=== PATIENT | female | born 1990 | race Caucasian/White ===

== ENCOUNTER 2018-02-06 20:07 | Inpatient (IN) | payer OTHER ==
[~2018-02-06] VITALS: Ht 165.1 cm; Wt 95.5 kg
[2018-02-06] MEDS ORDERED: MAGNESIUM SULF. PMX 20GM/500ML 500 ML IV SCH (21:29)
[2018-02-06] MEDS ORDERED: MAGNESIUM SULFATE PMX 2GM/50ML 50 ML IVPB ONE ×2 (21:30→23:30)
[2018-02-06] MEDS ORDERED: MAGNESIUM SULFATE PMX 4GM/100M 100 ML IVPB ONE ×2 (21:30)
[2018-02-06] MEDS ORDERED: D5%-LACTATED RINGERS 1,000 ML IV SCH (21:37)
[2018-02-06 21:50] LABS: BASOPHILS # (AUTO) 0.03 x10^3/uL (0-0.1); BASOPHILS % (AUTO) 0 % (0-1); EOSINOPHILS % (AUTO) 0 % (1-7); LYMPHOCYTES # (AUTO) 1.32 x10^3/uL (1-3.4); LYMPHOCYTES % (AUTO) 10 % (22-44); MD NO; MEAN CORPUSCULAR HEMOGLOBIN 30.6 pg (27.0-34.8); MEAN CORPUSCULAR HGB CONC 33.9 g/dL (32.4-35.8); MEAN CORPUSCULAR VOLUME 90.3 fL (80-100); MEAN PLATELET VOLUME 8.8 fL (7.4-10.4); MONOCYTES # (AUTO) 0.47 x10^3/uL (0.2-0.8); MONOCYTES % (AUTO) 4 % (2-9); NEUTROPHILS # (AUTO) 11.83 x10^3/uL (1.8-6.8); NEUTROPHILS % (AUTO) 87 % (42-75); PLATELET COUNT 218 x10^3/uL (130-400); RED BLOOD COUNT 3.85 x10^6/uL (3.82-5.3); RED CELL DISTRIBUTION WIDTH 12.9 % (9.6-15.2)
[2018-02-06] MEDS: LACTATED RINGERS 1,000 ML IV SCH (21:50)
[2018-02-06] MEDS ORDERED: PLEASE ENTER ALLERGIES MC SCH (22:00)
[2018-02-06 22:02] LABS: ALANINE AMINOTRANSFERASE 16 U/L (12-78); ALBUMIN 2.2 g/dL (3.4-5.0); ANION GAP 12 mmol/L (5-15); CALCIUM 9.3 mg/dL (8.5-10.1); CHLORIDE 107 mmol/L (98-107); CREATININE 1.29 mg/dL (0.55-1.02)
[2018-02-06 22:04] LABS: ALKALINE PHOSPHATASE 202 U/L (45-117); BILIRUBIN,TOTAL 0.5 mg/dL (0.2-1.0)
[2018-02-07] MEDS ORDERED: NEWBORN KIT ONE (00:32)
[2018-02-07] MEDS ORDERED: ACETAMINOPHEN 325 MG TABLET ONE ×2 (02:44→06:15)
[2018-02-07] MEDS ORDERED: ACETAMINOPHEN 325 MG TABLET PO PRN ×4 (03:00→16:00)
[2018-02-07 05:17] LABS: BASOPHILS # (AUTO) 0.01 x10^3/uL (0-0.1); BASOPHILS % (AUTO) 0 % (0-1); EOSINOPHILS % (AUTO) 0 % (1-7); LYMPHOCYTES % (AUTO) 11 % (22-44); MD NO; MEAN CORPUSCULAR HEMOGLOBIN 30.3 pg (27.0-34.8); MEAN CORPUSCULAR HGB CONC 33.7 g/dL (32.4-35.8); MEAN CORPUSCULAR VOLUME 90.1 fL (80-100); MEAN PLATELET VOLUME 9.4 fL (7.4-10.4); MONOCYTES # (AUTO) 0.55 x10^3/uL (0.2-0.8); MONOCYTES % (AUTO) 4 % (2-9); NEUTROPHILS # (AUTO) 11.02 x10^3/uL (1.8-6.8); NEUTROPHILS % (AUTO) 85 % (42-75); PLATELET COUNT 204 x10^3/uL (130-400); RED BLOOD COUNT 3.59 x10^6/uL (3.82-5.3); RED CELL DISTRIBUTION WIDTH 12.8 % (9.6-15.2)
[2018-02-07 05:20] LABS: ALANINE AMINOTRANSFERASE 15 U/L (12-78); ALBUMIN 2.1 g/dL (3.4-5.0); ANION GAP 16 mmol/L (5-15); CALCIUM 8.6 mg/dL (8.5-10.1); CHLORIDE 108 mmol/L (98-107); CREATININE 1.23 mg/dL (0.55-1.02)
[2018-02-07 05:28] LABS: ALKALINE PHOSPHATASE 192 U/L (45-117); BILIRUBIN,TOTAL 0.5 mg/dL (0.2-1.0); TOTAL PROTEIN 5.6 g/dL (6.4-8.2)
[2018-02-07] MEDS ORDERED: LABETALOL 200 MG TABLET ONE ×2 (05:53→08:13)
[2018-02-07] MEDS: LABETALOL 200 MG TABLET PO SCH ×2 (05:58→08:17)
[2018-02-07] MEDS: LEVOTHYROXINE 25 MCG TABLET PO SCH (06:45)
[2018-02-07] MEDS ORDERED: MAGNESIUM SULF. PMX 20GM/500ML 500 ML IV ONE ×2 (06:53→22:29)
[2018-02-07] MEDS: LACTATED RINGERS 1,000 ML IV SCH ×2 (07:29→17:47)
[2018-02-07 07:30] VITALS: BP 129/85
[2018-02-07] MEDS: MAGNESIUM SULF. PMX 20GM/500ML 500 ML IV SCH ×2 (07:33→23:15)
[2018-02-07] MEDS ORDERED: SODIUM CITRATE/CITRIC ACID 30 ML UDC ONE (13:51)
[2018-02-07] MEDS ORDERED: METOCLOPRAMIDE 5 MG/ML, 2ML ONE (13:52)
[2018-02-07] MEDS ORDERED: OXYTOCIN 10 UNITS/ML, 1ML ONE (13:53)
[2018-02-07] MEDS ORDERED: ONDANSETRON 2MG/ML, 2ML ONE ×3 (13:53→17:08)
[2018-02-07] MEDS ORDERED: FENTANYL PF 100 MCG/2ML ONE (13:53)
[2018-02-07] MEDS ORDERED: HYDROmorphone 2 MG/ML, 1ML ONE (13:53)
[2018-02-07] MEDS ORDERED: CEFAZOLIN 1,000 MG ONE (13:53)
[2018-02-07] MEDS ORDERED: METOCLOPRAMIDE 5 MG/ML, 2ML IVPush ONE (14:00)
[2018-02-07] MEDS ORDERED: SODIUM CITRATE/CITRIC ACID 30 ML UDC PO ONE (14:00)
[2018-02-07] MEDS ORDERED: OXYTOCIN 30U/ 0.9% NaCL 500ML 500 ML IV SCH ×2 (14:03→15:55)
[2018-02-07] MEDS ORDERED: LACTATED RINGERS 1,000 ML IV SCH ×3 (14:03→15:55)
[2018-02-07] MEDS ORDERED: OXYTOCIN 30U/ 0.9% NaCL 500ML 500 ML ONE (14:22)
[2018-02-07] MEDS ORDERED: LACTATED RINGERS 1,000 ML IVBOLUS ONE (14:30)
[2018-02-07] MEDS ORDERED: CEFAZOLIN PMX 1GM/50ML 50 ML IVPB ONE (14:30)
[2018-02-07] MEDS ORDERED: SODIUM CHLORIDE 0.9% PF 10ML ONE ×2 (15:19)
[2018-02-07] MEDS ORDERED: METOCLOPRAMIDE 5 MG/ML, 2ML IV PRN (16:00)
[2018-02-07] MEDS ORDERED: OXYcodone/APAP 5/325MG TABLET PO PRN (16:00)
[2018-02-07] MEDS ORDERED: ONDANSETRON 2MG/ML, 2ML IV PRN (16:00)
[2018-02-07] MEDS ORDERED: CALCIUM CARBONATE 500 MG TAB.CHEW PO PRN (16:00)
[2018-02-07] MEDS ORDERED: morphine SULFATE 10 MG/ML, 1ML IVPush PRN (16:00)
[2018-02-07] MEDS ORDERED: IBUPROFEN 600 MG TABLET PO PRN (16:00)
[2018-02-07] MEDS ORDERED: MISOPROSTOL 200 MCG TABLET PR PRN (16:00)
[2018-02-07] MEDS ORDERED: ONDANSETRON ODT 4 MG ONE (16:46)
[2018-02-07] MEDS ORDERED: ONDANSETRON ODT 4 MG PO ONE (17:00)
[2018-02-07] MEDS ORDERED: KETOROLAC 30 MG/1 ML ONE (19:16)
[2018-02-07] MEDS ORDERED: OXYcodone/APAP 5/325MG TABLET ONE (21:38)
[2018-02-07] MEDS: OXYcodone/APAP 5/325MG TABLET PO PRN (21:43)
[2018-02-07] MEDS ORDERED: DOCUSATE 100 MG CAPSULE ONE (21:45)
[2018-02-07] MEDS: DOCUSATE 100 MG CAPSULE PO PRN (21:47)
[2018-02-07 23:22] VITALS: BP 144/86
[2018-02-08] MEDS ORDERED: KETOROLAC 30 MG/1 ML ONE ×3 (01:00→14:49)
[2018-02-08] MEDS: KETOROLAC 30 MG/1 ML IV PRN ×3 (01:03→14:50)
[2018-02-08] MEDS: LACTATED RINGERS 1,000 ML IV SCH ×2 (03:19→11:58)
[2018-02-08] MEDS ORDERED: INDOMETHACIN 50 MG CAPSULE ONE (03:24)
[2018-02-08 05:09] LABS: BASOPHILS # (AUTO) 0.04 x10^3/uL (0-0.1); BASOPHILS % (AUTO) 0 % (0-1); EOSINOPHILS % (AUTO) 0 % (1-7); LYMPHOCYTES # (AUTO) 1.44 x10^3/uL (1-3.4); LYMPHOCYTES % (AUTO) 11 % (22-44); MD NO; MEAN CORPUSCULAR HEMOGLOBIN 30.7 pg (27.0-34.8); MEAN CORPUSCULAR HGB CONC 33.5 g/dL (32.4-35.8); MEAN CORPUSCULAR VOLUME 91.5 fL (80-100); MEAN PLATELET VOLUME 8.9 fL (7.4-10.4); MONOCYTES # (AUTO) 0.97 x10^3/uL (0.2-0.8); MONOCYTES % (AUTO) 7 % (2-9); NEUTROPHILS # (AUTO) 11.35 x10^3/uL (1.8-6.8); NEUTROPHILS % (AUTO) 82 % (42-75); PLATELET COUNT 160 x10^3/uL (130-400); RED BLOOD COUNT 3.22 x10^6/uL (3.82-5.3); RED CELL DISTRIBUTION WIDTH 12.7 % (9.6-15.2)
[2018-02-08 05:11] LABS: ALANINE AMINOTRANSFERASE 33 U/L (12-78); ALBUMIN 1.8 g/dL (3.4-5.0); ANION GAP 11 mmol/L (5-15); CHLORIDE 106 mmol/L (98-107); CREATININE 1.14 mg/dL (0.55-1.02)
[2018-02-08 05:14] LABS: ALKALINE PHOSPHATASE 154 U/L (45-117); BILIRUBIN,TOTAL 0.5 mg/dL (0.2-1.0); TOTAL PROTEIN 4.6 g/dL (6.4-8.2)
[2018-02-08] MEDS: LEVOTHYROXINE 25 MCG TABLET PO SCH ×2 (06:00→06:29)
[2018-02-08] MEDS ORDERED: OXYcodone/APAP 5/325MG TABLET ONE ×2 (08:15→14:49)
[2018-02-08] MEDS: OXYcodone/APAP 5/325MG TABLET PO PRN ×2 (08:18→14:50)
[2018-02-08 09:00] VITALS: BP 127/79
[2018-02-08] MEDS ORDERED: PRENATAL VIT/IRON/FA 1 EACH TABLET ONE (11:22)
[2018-02-08] MEDS ORDERED: DOCUSATE 100 MG CAPSULE ONE (11:23)
[2018-02-08] MEDS: DOCUSATE 100 MG CAPSULE PO PRN (11:24)
[2018-02-08] MEDS: PRENATAL VIT/IRON/FA 1 EACH TABLET PO SCH (11:25)
[2018-02-08 11:28] VITALS: BP 145/86
[2018-02-08] MEDS ORDERED: MAGNESIUM SULF. PMX 20GM/500ML 500 ML IV ONE (11:32)
[2018-02-08 14:18] VITALS: BP 141/99
[2018-02-08 20:00] VITALS: BP 144/94
[2018-02-09] MEDS: OXYcodone/APAP 5/325MG TABLET PO PRN ×6 (00:13→20:25)
[2018-02-09] MEDS: SODIUM CHLORIDE FLUSH 10ML SYR IVF SCH ×3 (00:20→20:25)
[2018-02-09 00:42] VITALS: BP 152/96
[2018-02-09 04:20] VITALS: BP 133/86
[2018-02-09 05:09] LABS: BASOPHILS # (AUTO) 0.04 x10^3/uL (0-0.1); BASOPHILS % (AUTO) 0 % (0-1); EOSINOPHILS # (AUTO) 0.02 x10^3/uL (0-0.4); EOSINOPHILS % (AUTO) 0 % (1-7); LYMPHOCYTES # (AUTO) 2.11 x10^3/uL (1-3.4); LYMPHOCYTES % (AUTO) 17 % (22-44); MD NO; MEAN CORPUSCULAR HEMOGLOBIN 30.2 pg (27.0-34.8); MEAN CORPUSCULAR HGB CONC 33.1 g/dL (32.4-35.8); MEAN CORPUSCULAR VOLUME 91.1 fL (80-100); MEAN PLATELET VOLUME 8.3 fL (7.4-10.4); MONOCYTES # (AUTO) 0.82 x10^3/uL (0.2-0.8); MONOCYTES % (AUTO) 7 % (2-9); NEUTROPHILS # (AUTO) 9.12 x10^3/uL (1.8-6.8); NEUTROPHILS % (AUTO) 75 % (42-75); PLATELET COUNT 176 x10^3/uL (130-400); RED BLOOD COUNT 3.54 x10^6/uL (3.82-5.3); RED CELL DISTRIBUTION WIDTH 12.7 % (9.6-15.2)
[2018-02-09 05:18] LABS: ALBUMIN 1.7 g/dL (3.4-5.0); ANION GAP 7 mmol/L (5-15); CALCIUM 7.2 mg/dL (8.5-10.1); CHLORIDE 108 mmol/L (98-107)
[2018-02-09 05:23] LABS: ALANINE AMINOTRANSFERASE 32 U/L (12-78); ALKALINE PHOSPHATASE 150 U/L (45-117); BILIRUBIN,TOTAL 0.5 mg/dL (0.2-1.0); TOTAL PROTEIN 4.8 g/dL (6.4-8.2)
[2018-02-09] MEDS: LEVOTHYROXINE 25 MCG TABLET PO SCH ×2 (06:00→06:06)
[2018-02-09 08:00] VITALS: BP 145/91
[2018-02-09] MEDS: PRENATAL VIT/IRON/FA 1 EACH TABLET PO SCH (08:31)
[2018-02-09] MEDS: DOCUSATE 100 MG CAPSULE PO PRN ×2 (08:31→20:25)
[2018-02-09 12:34] VITALS: BP 151/100
[2018-02-09 15:03] VITALS: BP 123/85
[2018-02-09 19:30] VITALS: BP 142/91
[2018-02-10] VITALS (7 sets, daily range): BP systolic 132–165; BP diastolic 83–102
[2018-02-10] MEDS: OXYcodone/APAP 5/325MG TABLET PO PRN ×4 (00:22→12:32)
[2018-02-10] MEDS: LEVOTHYROXINE 25 MCG TABLET PO SCH (06:14)
[2018-02-10] MEDS ORDERED: OXYC-302 PO (07:58)
[2018-02-10] MEDS ORDERED: IBUP-1222 PO (07:58)
[2018-02-10] MEDS ORDERED: NIFE30TA15 PO (08:01)
[2018-02-10] MEDS: DOCUSATE 100 MG CAPSULE PO PRN (08:20)
[2018-02-10] MEDS: PRENATAL VIT/IRON/FA 1 EACH TABLET PO SCH (08:20)
[2018-02-10] MEDS ORDERED: niFEDipine ER 30 MG TABLET.ER PO SCH (09:00)
[2018-02-10] MEDS: SODIUM CHLORIDE FLUSH 10ML SYR IVF SCH (09:19)
[2018-02-10] MEDS ORDERED: LABETALOL 5MG/ML, 20ML ONE (10:29)
[2018-02-10] MEDS ORDERED: LABETALOL 5MG/ML, 20ML IVPush ONE (10:30)
== END 2018-02-10 16:00 | disposition home or self-care (01) | DRG 787 ==
LOC: 2NE 21:14 → 2NW 02-08 14:53
PROVIDERS: ADMIT Obstetrics & Gynecology; ATTEND Obstetrics & Gynecology
PROC: 10D00Z1 Extraction of Products of Conception, Low, Open Approach (ICD-10-PCS; principal; 2018-02-07)
DX: O14.14 Severe pre-eclampsia complicating childbirth (principal); O26.833 Pregnancy related renal disease, third trimester; E22.1 Hyperprolactinemia; E03.9 Hypothyroidism, unspecified; H53.459 Other localized visual field defect, unspecified eye; N28.9 Disorder of kidney and ureter, unspecified; O99.284 Endocrine, nutritional and metabolic diseases complicating childbirth; O32.1XX1 Maternal care for breech presentation, fetus 1; O32.1XX2 Maternal care for breech presentation, fetus 2; D35.2 Benign neoplasm of pituitary gland; O30.043 Twin pregnancy, dichorionic/diamniotic, third trimester; O32.2XX2 Maternal care for transverse and oblique lie, fetus 2; Z37.2 Twins, both liveborn; Z3A.34 34 weeks gestation of pregnancy; Z80.3 Family history of malignant neoplasm of breast
CPT/HCPCS: 36415; 80053; 82803; 83735; 84550; 85025; 86850; 86900; 88307; G0378; J0690; J1170; J1885; J2405; J3010; Q0162; J2590; J2765; J3475; J7120

== ENCOUNTER → 2018-06-19 | Outpatient (CLI) | payer OTHER ==
[~2018-06-19] MED LIST: IBUP-1222 PO; NIFE30TA15 PO; OXYC-302 PO
== END | disposition home or self-care (01) ==
LOC: RAD 09:48
PROVIDERS: ATTEND Nurse Practitioner Family
DX: N20.0 Calculus of kidney (principal)
CPT/HCPCS: 74018